=== PATIENT | female | born 1965 | race Caucasian/White ===

== ENCOUNTER 2023-03-25 13:00 | Emergency (ER) | payer BC ==
[2023-03-25] MEDS ORDERED: HYDROmorphone 0.5 MG/0.5 ML Syringe IVPUSH ONE (15:08)
[2023-03-25] MEDS ORDERED: Ondansetron 4 MG/2 ML SDV IVPUSH ONE (15:08)
[2023-03-25] MEDS ORDERED: Sodium Chloride 0.9% 10 ML Syringe FLUSH PRN (15:08)
[2023-03-25] MEDS ORDERED: Sodium Chloride 0.9% 1,000 ML IV SCH (15:15)
[2023-03-25] MEDS ORDERED: cefTRIAXone 1 GM in Sodium Chloride 0.9% 100 ML IV ONE (15:53)
== END 2023-03-25 16:57 | disposition home or self-care (01) ==
LOC: JD.ED 13:00
DX: K12.2 Cellulitis and abscess of mouth (principal)
CPT/HCPCS: 70486; 96365; 96375; 99283; J0696; J1170; J2405; J3490; J7030; 99282